=== PATIENT | female | born 1965 | race Caucasian/White ===

== ENCOUNTER 2017-11-07 08:02 | Day surgery (SDC) | payer OTHER ==
[~2017-11-07] VITALS: Ht 160 cm; Wt 103.0 kg
[~2017-11-07 08:02] MED LIST: AUGMENTIN875 MG PO; CLARITIN,ALAVAR10 MG PO; CLARITIN-D 21 TABLET PO; FLOVENT 22120 INHALA IH; NAPROSYN375 MG PO; NAPROSYN500 MG PO; NEURONTIN300 MG PO; SINGULAIR10 MG PO; VENTOLIN HFA18 GM IH; VITAMIN D-32000 UNI2 PO; ZANTAC150 MG PO; ZYBAN 150 MG T150 MG PO
== END 2017-11-07 10:15 | disposition home or self-care (01) ==
LOC: CATH 08:02
PROC: B5181ZA Fluoroscopy of Superior Vena Cava using Low Osmolar Contrast, Guidance (ICD-10-PCS; principal; 2017-11-07)
PROC: 0JH60WZ Insertion of Totally Implantable Vascular Access Device into Chest Subcutaneous Tissue and Fascia, Open Approach (ICD-10-PCS; principal; 2017-11-07)
PROC: 02HV33Z Insertion of Infusion Device into Superior Vena Cava, Percutaneous Approach (ICD-10-PCS; principal; 2017-11-07)
DX: Z45.2 Encounter for adjustment and management of vascular access device (principal); I87.8 Other specified disorders of veins; C50.911 Malignant neoplasm of unspecified site of right female breast; Z87.891 Personal history of nicotine dependence; J45.909 Unspecified asthma, uncomplicated; H91.93 Unspecified hearing loss, bilateral
CPT/HCPCS: C1751; C1894; J0690; J1644; J2250; J3010; S0020

== ENCOUNTER 2018-03-20 18:49 | Emergency (ER) | payer OTHER ==
[~2018-03-20] VITALS: Ht 160 cm; Wt 86.3 kg
[2018-03-20 19:30] LABS: HEMATOCRIT 28.6 % (36.0-46.0); HEMOGLOBIN 9.6 G/DL (11.9-15.5); MCH 32.7 PG (29.0-34.0); MCHC 33.6 G/DL (30.0-36.0); MCV 97.3 FL (83-99); PLATELET COUNT 173 K/uL (156-360); RBC DIS.WIDTH-CV 17.6 % (11.8-14.6); RBC DIS.WIDTH-SD 61.6 % (39-53); RED BLOOD COUNT 2.94 M/uL (3.80-5.20)
[2018-03-20 19:38] LABS: ALBUMIN 3.6 g/dL (3.2-4.8); CHLORIDE 101 mEq/L (99-109); POTASSIUM 4.2 mEq/L (3.7-5.4); SODIUM 134 mEq/L (136-147)
[2018-03-20 19:41] LABS: GLUCOSE 143 mg/dL (70-99); TOTAL PROTEIN 6.4 g/dL (6.4-8.3)
[2018-03-20 19:42] LABS: TOTAL BILIRUBIN 0.8 mg/dL (0.0-1.0)
[2018-03-20 19:44] LABS: ALKALINE PHOSPHATASE 76 IU/L (3-129); CREATININE 0.8 mg/dL (0.6-1.3); GFR ESTIMATE (CALCULATED) > 59 mL/min/
[2018-03-20 19:45] LABS: UREA NITROGEN (BUN) 8 mg/dL (9-23)
[2018-03-20 19:46] LABS: AST (GOT) 26 IU/L (2-34)
[2018-03-20 19:47] LABS: ALT (GPT) 21 IU/L (3-49)
[2018-03-20 19:48] LABS: LIPASE 7 U/L (1.0-51.0)
[2018-03-20 19:56] LABS: QUANTITATIVE HCG < 4.0 MIU/ML
[2018-03-20 23:14] LABS: APPEARANCE CLEAR ((CLEAR)); BILIRUBIN NEGATIVE; BLOOD NEGATIVE; COLOR YELLOW ((YELLOW)); GLUCOSE (STRIP) 50; KETONES 20; LEUKOCYTES NEGATIVE; NITRITE NEGATIVE; PROTEIN (STRIP) NEGATIVE; SPECIFIC GRAVITY 1.028 (1.000-1.030); UCUL ADDED? NO
[2018-03-20] MEDS ORDERED: MIRALAX17 GM PO (23:25)
[2018-03-20 23:59] VITALS: BP 120/63
== END 2018-03-20 23:59 | disposition home or self-care (01) ==
LOC: EME 18:49
DX: R10.13 Epigastric pain (principal); K80.20 Calculus of gallbladder without cholecystitis without obstruction; D72.819 Decreased white blood cell count, unspecified; D64.9 Anemia, unspecified; C50.919 Malignant neoplasm of unspecified site of unspecified female breast; Z92.21 Personal history of antineoplastic chemotherapy; J45.909 Unspecified asthma, uncomplicated; Z79.51 Long term (current) use of inhaled steroids; Z87.891 Personal history of nicotine dependence
CPT/HCPCS: 71046; 74177; 80053; 81003; 83690; 84702; 85027; 99281; 99285; J2270; J7030

== ENCOUNTER 2018-03-27 11:50 | Inpatient (IN) | payer OTHER ==
[~2018-03-27] VITALS: Ht 160 cm; Wt 83.2 kg
[~2018-03-27 11:50] MED LIST changes: +MIRALAX17 GM PO
[2018-03-27 12:15] LABS: HEMATOCRIT 30.3 % (36.0-46.0); HEMOGLOBIN 10.1 G/DL (11.9-15.5); MCHC 33.3 G/DL (30.0-36.0); MCV 95.9 FL (83-99); PLATELET COUNT 256 K/uL (156-360); RBC DIS.WIDTH-CV 19.1 % (11.8-14.6); RBC DIS.WIDTH-SD 68.1 % (39-53); RED BLOOD COUNT 3.16 M/uL (3.80-5.20); WHITE BLOOD COUNT 7.4 K/uL (4.1-10.2)
[2018-03-27 12:30] LABS: CHLORIDE 99 mEq/L (99-109); POTASSIUM 3.7 mEq/L (3.7-5.4); SODIUM 137 mEq/L (136-147)
[2018-03-27 12:32] LABS: GLUCOSE 130 mg/dL (70-99)
[2018-03-27 12:36] LABS: CREATININE 0.8 mg/dL (0.6-1.3); GFR ESTIMATE (CALCULATED) > 59 mL/min/
[2018-03-27 12:37] LABS: UREA NITROGEN (BUN) 7 mg/dL (9-23)
[2018-03-27 12:40] LABS: TROP-I INTERPRETATION NEGATIVE; TROPONIN-I 0.04 ng/mL (0.0-0.30)
[2018-03-27] MEDS ORDERED: OMEPRAZOLE20 MG PO (17:06)
[2018-03-27] MEDS ORDERED: PROCHLORPERAZIN10 MG PO (17:06)
[2018-03-27] MEDS ORDERED: NAPROXEN500 MG PO (17:07)
[2018-03-27] MEDS ORDERED: MONTELUKAST SOD10 MG PO (17:07)
[2018-03-27] MEDS ORDERED: HYDROCODON-ACE1 EAC7 PO (17:07)
[2018-03-27] MEDS ORDERED: STOOL SOFTENER100 MG PO (17:09)
[2018-03-27 17:20] LABS: ALBUMIN 3.3 g/dL (3.2-4.8)
[2018-03-27 17:23] LABS: TOTAL PROTEIN 6.8 g/dL (6.4-8.3)
[2018-03-27 17:28] LABS: DIRECT BILIRUBIN 0.2 mg/dL (0.0-0.3)
[2018-03-27 17:30] LABS: ALKALINE PHOSPHATASE 375 IU/L (3-129); ALT (GPT) 44 IU/L (3-49); AST (GOT) 86 IU/L (2-34); LIPASE 32 U/L (1.0-51.0); TOTAL BILIRUBIN 0.4 mg/dL (0.0-1.0)
[2018-03-27 18:13] VITALS: BP 101/54
[2018-03-27 18:39] LABS: TROP-I INTERPRETATION NEGATIVE; TROPONIN-I 0.04 ng/mL (0.0-0.30)
[2018-03-28 00:21] VITALS: BP 96/50
[2018-03-28 01:08] LABS: TROP-I INTERPRETATION NEGATIVE; TROPONIN-I 0.05 ng/mL (0.0-0.30)
[2018-03-28 03:56] VITALS: BP 128/58
[2018-03-28 05:20] LABS: BASOPHIL (%) 0.3 % (0-1); EOSINOPHIL (%) 0.6 % (0-5); HEMATOCRIT 26.1 % (36.0-46.0); HEMOGLOBIN 8.4 G/DL (11.9-15.5); IMMATURE GRANULOCYTE (%) 1.6 % (0.0-0.7); LYMPHOCYTE (%) 7.4 % (15-42); LYMPHOCYTE COUNT 0.5 K/uL (1.0-2.8); MCH 31.1 PG (29.0-34.0); MCHC 32.2 G/DL (30.0-36.0); MCV 96.7 FL (83-99); MONOCYTE (%) 19.2 % (3-12); MONOCYTE COUNT 1.2 K/uL (0-0.8); NEUTROPHIL (%) 70.9 % (45-76); NEUTROPHIL COUNT 4.4 K/uL (1.8-6.4); PLATELET COUNT 225 K/uL (156-360); RBC DIS.WIDTH-CV 19.3 % (11.8-14.6); RBC DIS.WIDTH-SD 68.5 % (39-53); WHITE BLOOD COUNT 6.2 K/uL (4.1-10.2)
[2018-03-28 05:39] LABS: ALBUMIN 2.8 G/DL (3.2-4.8); ALT (GPT) 25 IU/L (3-49); CHLORIDE 101 MEQ/L (99-109); CREATININE 0.9 MG/DL (0.6-1.3); GFR ESTIMATE (CALCULATED) > 59 mL/min/; POTASSIUM 3.6 MEQ/L (3.7-5.4); SODIUM 137 MEQ/L (136-147); TOTAL PROTEIN 5.6 G/DL (6.4-8.3); UREA NITROGEN (BUN) 9 mg/dL (9-23)
[2018-03-28 05:42] LABS: ALKALINE PHOSPHATASE 218 IU/L (3-129); AST (GOT) 38 IU/L (2-34); GLUCOSE 97 mg/dL (70-99); TOTAL BILIRUBIN 0.4 MG/DL (0.0-1.0)
[2018-03-28 07:23] VITALS: BP 102/63
[2018-03-28 12:00] VITALS: BP 122/59
[2018-03-28 15:52] VITALS: BP 99/51
[2018-03-28 20:00] VITALS: BP 119/59
[2018-03-29 04:05] VITALS: BP 113/56
[2018-03-29 05:05] LABS: HEMATOCRIT 26.7 % (36.0-46.0); HEMOGLOBIN 8.4 G/DL (11.9-15.5); MCHC 31.5 G/DL (30.0-36.0); MCV 98.5 FL (83-99); PLATELET COUNT 257 K/uL (156-360); RBC DIS.WIDTH-SD 68.3 % (39-53); RED BLOOD COUNT 2.71 M/uL (3.80-5.20)
[2018-03-29 05:32] LABS: ALBUMIN 2.8 G/DL (3.2-4.8); ALKALINE PHOSPHATASE 183 IU/L (3-129); ALT (GPT) 19 IU/L (3-49); AST (GOT) 28 IU/L (2-34); CHLORIDE 105 MEQ/L (99-109); CREATININE 0.9 MG/DL (0.6-1.3); GFR ESTIMATE (CALCULATED) > 59 mL/min/; GLUCOSE 81 mg/dL (70-99); POTASSIUM 3.8 MEQ/L (3.7-5.4); SODIUM 138 MEQ/L (136-147); TOTAL BILIRUBIN 0.4 MG/DL (0.0-1.0); TOTAL PROTEIN 5.6 G/DL (6.4-8.3); UREA NITROGEN (BUN) 10 mg/dL (9-23)
[2018-03-29 07:22] VITALS: BP 109/55
[2018-03-29 11:28] VITALS: BP 124/58
[2018-03-29 16:07] VITALS: BP 127/61
[2018-03-30] VITALS (7 sets, daily range): BP systolic 108–132; BP diastolic 52–58
[2018-03-30 05:48] LABS: HEMATOCRIT 26.1 % (36.0-46.0); HEMOGLOBIN 8.3 G/DL (11.9-15.5); MCH 31.4 PG (29.0-34.0); MCHC 31.8 G/DL (30.0-36.0); MCV 98.9 FL (83-99); PLATELET COUNT 276 K/uL (156-360); RBC DIS.WIDTH-CV 19.2 % (11.8-14.6); RBC DIS.WIDTH-SD 70.5 % (39-53); RED BLOOD COUNT 2.64 M/uL (3.80-5.20); WHITE BLOOD COUNT 15.3 K/uL (4.1-10.2)
[2018-03-30 06:15] LABS: ALBUMIN 2.7 G/DL (3.2-4.8); ALKALINE PHOSPHATASE 176 IU/L (3-129); ALT (GPT) 23 IU/L (3-49); CHLORIDE 105 MEQ/L (99-109); CREATININE 0.9 MG/DL (0.6-1.3); GFR ESTIMATE (CALCULATED) > 59 mL/min/; GLUCOSE 91 mg/dL (70-99); SODIUM 137 MEQ/L (136-147); TOTAL PROTEIN 5.8 G/DL (6.4-8.3); UREA NITROGEN (BUN) 10 mg/dL (9-23)
[2018-03-30 06:17] LABS: AST (GOT) 63 IU/L (2-34); POTASSIUM 4.6 MEQ/L (3.7-5.4); TOTAL BILIRUBIN 0.5 MG/DL (0.0-1.0)
[2018-03-31] VITALS (9 sets, daily range): BP systolic 95–122; BP diastolic 49–59
[2018-03-31 05:13] LABS: HEMOGLOBIN 7.4 G/DL (11.9-15.5); MCH 31.1 PG (29.0-34.0); MCHC 30.8 G/DL (30.0-36.0); MCV 100.8 FL (83-99); PLATELET COUNT 239 K/uL (156-360); RBC DIS.WIDTH-CV 19.1 % (11.8-14.6); RBC DIS.WIDTH-SD 71.6 % (39-53); RED BLOOD COUNT 2.38 M/uL (3.80-5.20)
[2018-03-31 05:38] LABS: ALBUMIN 2.3 G/DL (3.2-4.8); ALT (GPT) 15 IU/L (3-49); CHLORIDE 106 MEQ/L (99-109); CREATININE 0.8 MG/DL (0.6-1.3); GFR ESTIMATE (CALCULATED) > 59 mL/min/; GLUCOSE 73 mg/dL (70-99); SODIUM 139 MEQ/L (136-147); TOTAL BILIRUBIN 0.5 MG/DL (0.0-1.0); UREA NITROGEN (BUN) 7 mg/dL (9-23)
[2018-03-31 05:41] LABS: ALKALINE PHOSPHATASE 116 IU/L (3-129); AST (GOT) 29 IU/L (2-34); TOTAL PROTEIN 4.9 G/DL (6.4-8.3)
[2018-03-31 14:38] LABS: HEMATOCRIT 29.1 % (36.0-46.0); HEMOGLOBIN 9.1 G/DL (11.9-15.5); MCH 30.4 PG (29.0-34.0); MCHC 31.3 G/DL (30.0-36.0); MCV 97.3 FL (83-99); PLATELET COUNT 237 K/uL (156-360); RBC DIS.WIDTH-SD 73.2 % (39-53); WHITE BLOOD COUNT 8.5 K/uL (4.1-10.2)
[2018-03-31 14:40] LABS: RED BLOOD COUNT 2.99 M/uL (3.80-5.20)
[2018-03-31 14:41] LABS: BASOPHIL (%) 0.2 % (0-1); EOSINOPHIL (%) 0.6 % (0-5); EOSINOPHIL COUNT 0.1 K/uL (0-0.3); IMMATURE GRANULOCYTE (%) 0.8 % (0.0-0.7); LYMPHOCYTE (%) 7.4 % (15-42); LYMPHOCYTE COUNT 0.6 K/uL (1.0-2.8); MONOCYTE (%) 10.3 % (3-12); MONOCYTE COUNT 0.9 K/uL (0-0.8); NEUTROPHIL (%) 80.7 % (45-76); NEUTROPHIL COUNT 6.9 K/uL (1.8-6.4)
[2018-04-01] VITALS (9 sets, daily range): BP systolic 84–118; BP diastolic 49–77
[2018-04-01 05:27] LABS: BASOPHIL (%) 0.3 % (0-1); EOSINOPHIL (%) 0.7 % (0-5); EOSINOPHIL COUNT 0.1 K/uL (0-0.3); HEMATOCRIT 24.9 % (36.0-46.0); HEMOGLOBIN 7.9 G/DL (11.9-15.5); IMMATURE GRANULOCYTE (%) 0.6 % (0.0-0.7); LYMPHOCYTE (%) 7.8 % (15-42); LYMPHOCYTE COUNT 0.5 K/uL (1.0-2.8); MCH 30.3 PG (29.0-34.0); MCHC 31.7 G/DL (30.0-36.0); MCV 95.4 FL (83-99); MONOCYTE (%) 11.5 % (3-12); MONOCYTE COUNT 0.8 K/uL (0-0.8); NEUTROPHIL (%) 79.1 % (45-76); NEUTROPHIL COUNT 5.4 K/uL (1.8-6.4); PLATELET COUNT 254 K/uL (156-360); RBC DIS.WIDTH-CV 22.4 % (11.8-14.6); RED BLOOD COUNT 2.61 M/uL (3.80-5.20); WHITE BLOOD COUNT 6.8 K/uL (4.1-10.2)
[2018-04-01 05:55] LABS: CHLORIDE 107 MEQ/L (99-109); CREATININE 0.8 MG/DL (0.6-1.3); GFR ESTIMATE (CALCULATED) > 59 mL/min/; GLUCOSE 80 mg/dL (70-99); POTASSIUM 4.3 MEQ/L (3.7-5.4); SODIUM 139 MEQ/L (136-147); UREA NITROGEN (BUN) 7 mg/dL (9-23)
[2018-04-01 15:26] LABS: ABSOLUTE RETICULOCYTE CT. 0.1 M/uL (0.02-0.08); IMM.RETIC FRACTION 25.7 % (3-19); RETIC HGB EQUIVALENT 32.3 (28-36); RETICULOCYTE COUNT 1.6 % (0.5-1.8)
[2018-04-01 15:50] LABS: IRON 39 MCG/DL (35-150); TRANSFERRIN (TIBC) 118.8 mg/dL (215-380); TRANSFERRIN SATUR. 33 % (20-55)
[2018-04-01 16:04] LABS: LACTATE DEHYDROGENASE 191 IU/L (20-246)
[2018-04-01 16:08] LABS: FERRITIN 568 NG/ML (10-291)
[2018-04-01 16:14] LABS: FOLIC ACID (FOLATE) 8.1 NG/ML (5.0-22.0)
[2018-04-02 00:06] VITALS: BP 129/68
[2018-04-02 03:02] LABS: STOOL OCCULT BLD 1ST SPECIMEN NEGATIVE
[2018-04-02 05:37] VITALS: BP 137/65
[2018-04-02 05:59] LABS: BASOPHIL (%) 0.3 % (0-1); EOSINOPHIL COUNT 0.1 K/uL (0-0.3); HEMATOCRIT 29.6 % (36.0-46.0); HEMOGLOBIN 9.5 G/DL (11.9-15.5); IMMATURE GRANULOCYTE (%) 0.6 % (0.0-0.7); LYMPHOCYTE (%) 10.6 % (15-42); LYMPHOCYTE COUNT 0.7 K/uL (1.0-2.8); MCH 30.2 PG (29.0-34.0); MCHC 32.1 G/DL (30.0-36.0); MONOCYTE (%) 11.9 % (3-12); MONOCYTE COUNT 0.7 K/uL (0-0.8); NEUTROPHIL (%) 75.6 % (45-76); NEUTROPHIL COUNT 4.7 K/uL (1.8-6.4); PLATELET COUNT 282 K/uL (156-360); RBC DIS.WIDTH-CV 20.3 % (11.8-14.6); RBC DIS.WIDTH-SD 69.3 % (39-53); WHITE BLOOD COUNT 6.2 K/uL (4.1-10.2)
[2018-04-02 06:01] LABS: RED BLOOD COUNT 3.15 M/uL (3.80-5.20)
[2018-04-02 06:18] LABS: CHLORIDE 106 MEQ/L (99-109); CREATININE 0.8 MG/DL (0.6-1.3); GFR ESTIMATE (CALCULATED) > 59 mL/min/; GLUCOSE 83 mg/dL (70-99); POTASSIUM 3.8 MEQ/L (3.7-5.4); SODIUM 140 MEQ/L (136-147); UREA NITROGEN (BUN) 7 mg/dL (9-23)
[2018-04-02 08:07] VITALS: BP 108/51
[2018-04-02 11:55] VITALS: BP 111/55
[2018-04-02 17:33] VITALS: BP 120/57
[2018-04-02 19:18] VITALS: BP 107/56
[2018-04-03 00:07] VITALS: BP 115/71
[2018-04-03 04:10] VITALS: BP 122/63
[2018-04-03 05:24] LABS: BASOPHIL (%) 0.3 % (0-1); EOSINOPHIL (%) 1.3 % (0-5); EOSINOPHIL COUNT 0.1 K/uL (0-0.3); HEMATOCRIT 30.4 % (36.0-46.0); HEMOGLOBIN 9.8 G/DL (11.9-15.5); IMMATURE GRANULOCYTE (%) 0.3 % (0.0-0.7); LYMPHOCYTE (%) 9.7 % (15-42); LYMPHOCYTE COUNT 0.7 K/uL (1.0-2.8); MCH 30.7 PG (29.0-34.0); MCHC 32.2 G/DL (30.0-36.0); MCV 95.3 FL (83-99); MONOCYTE (%) 10.1 % (3-12); MONOCYTE COUNT 0.7 K/uL (0-0.8); NEUTROPHIL (%) 78.3 % (45-76); NEUTROPHIL COUNT 5.4 K/uL (1.8-6.4); PLATELET COUNT 278 K/uL (156-360); RBC DIS.WIDTH-CV 19.8 % (11.8-14.6); RBC DIS.WIDTH-SD 68.9 % (39-53); RED BLOOD COUNT 3.19 M/uL (3.80-5.20); WHITE BLOOD COUNT 6.9 K/uL (4.1-10.2)
[2018-04-03 08:27] LABS: CHLORIDE 107 MEQ/L (99-109); CREATININE 0.8 MG/DL (0.6-1.3); GFR ESTIMATE (CALCULATED) > 59 mL/min/; GLUCOSE 93 mg/dL (70-99); MAGNESIUM 1.7 mg/dl (1.3-2.7); POTASSIUM 4.2 MEQ/L (3.7-5.4); SODIUM 141 MEQ/L (136-147); UREA NITROGEN (BUN) 5 mg/dL (9-23)
[2018-04-03 10:09] VITALS: BP 126/60
[2018-04-03 12:07] VITALS: BP 130/65
[2018-04-03] MEDS ORDERED: HYDROCODON-ACE1 EAC9 PO (12:20)
== END 2018-04-03 15:42 | disposition home health service (06) | DRG 417 ==
LOC: EME 11:50 → EDOF 16:03 → ENRESERV 16:06 → EDOF 17:26 → 4SOUTH 17:26 → EDOF 17:26 → ENRESERV 17:31 → 4SOUTH 17:43
PROVIDERS: Emergency Medicine; Hospitalist; Internal Medicine; Internal Medicine Medical Oncology; Physician Assistant; Student in an Organized Health Care Education/Training Program; Surgery; Thoracic Surgery (Cardiothoracic Vascular Surgery)
PROC: 0FT44ZZ Resection of Gallbladder, Percutaneous Endoscopic Approach (ICD-10-PCS; principal; 2018-03-29)
PROC: 30233N1 Transfusion of Nonautologous Red Blood Cells into Peripheral Vein, Percutaneous Approach (ICD-10-PCS; 2018-03-31)
DX: K80.13 Calculus of gallbladder with acute and chronic cholecystitis with obstruction (principal); K82.1 Hydrops of gallbladder; D62 Acute posthemorrhagic anemia; D61.810 Antineoplastic chemotherapy induced pancytopenia; T45.1X5A Adverse effect of antineoplastic and immunosuppressive drugs, initial encounter; J45.909 Unspecified asthma, uncomplicated; K21.9 Gastro-esophageal reflux disease without esophagitis; H90.3 Sensorineural hearing loss, bilateral; C50.911 Malignant neoplasm of unspecified site of right female breast; C77.9 Secondary and unspecified malignant neoplasm of lymph node, unspecified; Z17.0 Estrogen receptor positive status [ER+]; Z87.891 Personal history of nicotine dependence; Z91.040 Latex allergy status
CPT/HCPCS: 71046; 71275; 76705; 80048; 80053; 80076; 82272; 82607; 82728; 82746; 83090 90; 83540; 83605; 83615; 83690; 83735; 83880; 83921 90; 84466; 84484; 85025; 85027; 85046; 85379; 86850; 86900; 86901; 86920; 87040; 88300; 88304; 93005; 94640; 94640 76; 94760; 94799; 99281; 99285; G8978 GP CH; G8979 GP CH; G8980 GP CH; J0131; J1100; J1170; J1200; J1644; J1885; J2250; J2405; J2543; J2550; J3010; J3370; J3475; J7042; J7050; J7120; P9016; P9040; Q0167

== ENCOUNTER 2018-05-08 08:22 | Day surgery (SDC) | payer OTHER ==
[~2018-05-08] VITALS: Ht 154.9 cm; Wt 79.4 kg
[~2018-05-08 08:22] MED LIST changes: +AMOXICILLIN875 MG PO; +CLARITIN10 M3 PO; +COMPAZINE10 MG PO; +HYDROCODON-ACE1 EAC7 PO; +HYDROCODON-ACE1 EAC9 PO; +LORCET 5-325 M1 EACH PO; +MONTELUKAST SOD10 MG PO; +NAPROXEN500 MG PO; +OMEPRAZOLE20 MG PO; +PRILOSEC OTC20 MG PO; +PROCHLORPERAZIN10 MG PO; +STOOL SOFTENER100 MG PO
[2018-05-08 09:16] VITALS: BP 120/68
[2018-05-08 18:00] VITALS: BP 121/58
[2018-05-08 19:50] VITALS: BP 141/67
[2018-05-08 23:42] VITALS: BP 127/61
[2018-05-09 04:10] VITALS: BP 120/60
[2018-05-09 07:00] LABS: HEMATOCRIT 29.9 % (36.0-46.0); MCH 31.4 PG (29.0-34.0); MCHC 32.4 G/DL (30.0-36.0); MCV 96.8 FL (83-99); PLATELET COUNT 204 K/uL (156-360); RBC DIS.WIDTH-CV 15.8 % (11.8-14.6); RBC DIS.WIDTH-SD 55.7 % (39-53); WHITE BLOOD COUNT 7.8 K/uL (4.1-10.2)
[2018-05-09 07:01] LABS: HEMOGLOBIN 9.7 G/DL (11.9-15.5); RED BLOOD COUNT 3.09 M/uL (3.80-5.20)
[2018-05-09 07:46] VITALS: BP 113/57
[2018-05-09 08:18] VITALS: BP 113/57
[2018-05-09] MEDS ORDERED: LORCET 5-325 M1 EACH PO (10:32)
[2018-05-09] MEDS ORDERED: DIAZEPAM5 MG PO (10:32)
== END 2018-05-09 13:51 | disposition home or self-care (01) ==
LOC: SDC 08:22 → 2EASTP 15:19 → 2EAST 15:19 → 2EASTP 15:19 → ENRESERV 15:20 → 2EAST 18:57
PROVIDERS: Surgery
PROC: 07B50ZX Excision of Right Axillary Lymphatic, Open Approach, Diagnostic (ICD-10-PCS; principal; 2018-05-08)
PROC: 0HHT0NZ Insertion of Tissue Expander into Right Breast, Open Approach (ICD-10-PCS; principal; 2018-05-08)
PROC: 0HBT0ZZ Excision of Right Breast, Open Approach (ICD-10-PCS; principal; 2018-05-08)
DX: C50.811 Malignant neoplasm of overlapping sites of right female breast (principal); Z17.0 Estrogen receptor positive status [ER+]; D64.9 Anemia, unspecified; K21.9 Gastro-esophageal reflux disease without esophagitis; J45.20 Mild intermittent asthma, uncomplicated; R00.0 Tachycardia, unspecified; Z91.040 Latex allergy status; Z87.891 Personal history of nicotine dependence
CPT/HCPCS: 85027; 88309; G0378; J0131; J0690; J1100; J1170; J2250; J2270; J2405; J2710; J3010; J3480; J7643; S0020